=== PATIENT | female | born 1985 | race Caucasian/White ===

== ENCOUNTER 2020-08-09 10:17 | Outpatient (RCR) | payer BC, SELFPAY ==
[2020-07-12 11:12] VITALS: BP 105/66; PULSE 81
[2020-07-19 11:30] VITALS: BP 97/73; PULSE 82
[2020-07-26 12:59] VITALS: BP 106/70; PULSE 83
[2020-08-02 10:35] VITALS: BP 109/74
[2020-08-09 10:31] VITALS: BP 101/61; PULSE 73
== END 2020-08-19 07:37 | disposition home or self-care (01) ==
LOC: ANHOBOP 10:17
PROVIDERS: PCP Internal Medicine; Visit Provider Obstetrics & Gynecology
DX: O09.513 Supervision of elderly primigravida, third trimester (principal); Z3A.34 34 weeks gestation of pregnancy; Z3A.35 35 weeks gestation of pregnancy; Z3A.36 36 weeks gestation of pregnancy; Z3A.37 37 weeks gestation of pregnancy; Z3A.38 38 weeks gestation of pregnancy
CPT/HCPCS: 59025

== ENCOUNTER 2020-08-16 00:01 | Inpatient (IN) | payer OTHER, BC, SELFPAY ==
[2020-08-16] VITALS (165 sets, daily range): BP systolic 67–122; BP diastolic 36–89; PULSE 54–121; RESP 16–18; TEMP 36.2–37.3; O2SAT 93–100; BMI 28.5
--- NOTE | 2020-08-16 00:01 | LDADM ---
This patient, Rhona Luna, was admitted to Labor/Delivery/Recovery 105 on 08/16/20 at 00:01. Plans for labor, pain management and were discussed with patient. Patient/family oriented to hospital policies and general routines including ID bracelet, bed and alarms, visiting hours, pain management, procedures, bathroom and other care routines, personal items, smoking policy, room service/diet and guest tray routines, security routines, and visiting hours. Patient/Family are encouraged to report perceived risks to care and to ask questions if they do not understand what they are told or what they should do. See OBIX for further documentation.
[2020-08-16 00:32] LABS: Basophils Percent Auto 0.3 % (0.2-1.2); Eosinophils Percent Auto 0.5 % (0-4.4); Hematocrit 30.9 % (37.0-47.0); Hemoglobin 10.4 g/dL (12.0-15.0); Immature Granulocyte Absolute 0.03 K/mm3 (0.00-0.031); Immature Granulocyte Percent A 0.4 % (0-0.5); Lymphocytes Percent Auto 26.8 % (18.3-44.2); Mean Corpuscular HGB Conc 33.7 g/dl (32-36); Mean Corpuscular Hemoglobin 30.2 pg (26-34); Mean Corpuscular Volume 89.8 fl (80-100); Mean Platelet Volume 9.3 fl (7.4-10.4); Monocytes Absolute Auto 0.7 K/mm3 (0.1-0.6); Platelet Count Result 281 k/mm3 (150-375); Red Blood Count 3.44 M/mm3 (4.2-5.4); Red Cell Distribution Width 12.2 % (11.5-14.5); White Blood Count 7.9 K/mm3 (4.5-10.0)
[2020-08-16] MEDS: OXYTOCIN 30 UNITS/NS 500 ML 30 UNITS/500 ML BAG IV CONT (00:48)
[2020-08-16] MEDS: LACTATED RINGERS 1,000 ML 125 ML IV CONT (00:48)
[2020-08-16 04:09] LABS: Hepatitis B Surface Antigen Negative (Negative)
[2020-08-16 09:02] LABS: Rapid Plasma Reagin Non-Reactive (NonReactive)
[2020-08-16] MEDS: LACTATED RINGERS 1,000 ML 999 ML IV CONT ×2 (11:30→12:38)
--- NOTE | 2020-08-16 12:25 | WPDANESEPPF ---
Anes - Initial Pre Proc Eval Procedure: labor epidural Date/Time: 08/16/20 12:25 Surgeon: Emiliano Hunt MD Pre Op Diagnosis: labor pain Pre Op Diagnosis: IOL Patient Data Age: 34 Gender: F Height: 1.7 m Weight: 82.7 kg Last Vital Signs Temp 36.6 C 08/16/20 09:30 Pulse 74 08/16/20 12:24 Resp 18 08/16/20 05:42 BP 110/65 08/16/20 12:24 Pulse Ox 100 08/16/20 12:20 Allergies Allergy/AdvReac Type Severity Reaction Status Date / Time No Known Allergies Allergy Unknown Verified 07/26/20 12:34 Home Medications Medication Instructions Recorded Confirmed Type PNV cmb#95-ferrous fumarate-FA 1 tablet PO DAILY 07/26/20 07/26/20 History [] Laboratory Tests 08/16/20 08/16/20 08/16/20 00:24 00:24 00:24 WBC 7.9 K/mm3 K/mm3 (4.5-10.0) RBC 3.44 M/mm3 L M/mm3 (4.2-5.4) Hgb 10.4 g/dL L g/dL (12.0-15.0) Hct 30.9 % L % (37.0-47.0) MCV 89.8 fl fl (80-100) MCH 30.2 pg pg (26-34) MCHC 33.7 g/dl g/dl (32-36) RDW 12.2 % % (11.5-14.5) Plt Count 281 k/mm3 k/mm3 (150-375) MPV 9.3 fl fl (7.4-10.4) Immature Gran % (Auto) 0.4 % % (0-0.5) Neut % (Auto) 63.0 % % (45.5-73.1) Lymph % (Auto) 26.8 % % (18.3-44.2) Hill % (Auto) 9.0 % H % (2.6-8.5) Eos % (Auto) 0.5 % % (0-4.4) Baso % (Auto) 0.3 % % (0.2-1.2) Lymph # (Auto) 2.10 K/mm3 K/mm3 (0.9-3.2) Hill # (Auto) 0.7 K/mm3 H K/mm3 (0.1-0.6) Eos # (Auto) 0.0 K/mm3 K/mm3 (0-0.3) Baso # (Auto) 0.0 K/mm3 K/mm3 (0.0-0.1) Abs Immat Gran (auto) 0.03 K/mm3 K/mm3 (0.00-0.031) Absolute Neuts (auto) 5.0 K/mm3 K/mm3 (1.3-6.7) Absolute Nucleated RBC 0.0 K/mm3 K/mm3 (0.0-0.012) Nucleated RBC % 0.0 % % (0.0-0.2) RPR Non-reactive (NonReactive) Hep Bs Antigen Rubella IgG Antibody 75.0 IU/ML IU/ML (10 - ) Blood Type Antibody Screen 08/16/20 08/16/20 00:24 00:24 WBC RBC Hgb Hct MCV MCH MCHC RDW Plt Count MPV Immature Gran % (Auto) Neut % (Auto) Lymph % (Auto) Hill % (Auto) Eos % (Auto) Baso % (Auto) Lymph # (Auto) Hill # (Auto) Eos # (Auto) Baso # (Auto) Abs Immat Gran (auto) Absolute Neuts (auto) Absolute Nucleated RBC Nucleated RBC % RPR Hep Bs Antigen Negative (Negative) Rubella IgG Antibody Blood Type A Positive Antibody Screen Negative Patient hx anesthesia problems: none Family hx anesthesia problems: none PMFSH Social History Social History Smoking status: Never smoker Substance use: never Spiritual care concerns: No Anes - Eval Final PreProcedure Day of Procedure 08/16/20 12:25 Patient weight: overweight ASA classification: II Anesthesia type and monitoring: regional epidural Informed Consent: The patient's anesthetic plan and its attendant risks and benefits were discussed with the patient/family/POA. Questions were solicited and answers provided to the satisfaction of the patient/family/POA.
[2020-08-16] MEDS: PHENYLEPHRINE 1,000 MCG/10 ML SYRINGE 100 MCG IV PUSH (12:53)
[2020-08-16] MEDS: SODIUM CHLORIDE 0.9% IV 300 ML 600 ML I-UTERINE (13:51)
[2020-08-16] MEDS: ONDANSETRON INJ 4 MG/2 ML VIAL IV PUSH (14:34)
--- NOTE | 2020-08-16 17:05 | PM.OBPRVD ---
OB - Delivery Note Procedure Route of delivery: Laceration description: Perineal - 2nd Degree Delivery repair: chromic Specimen: No Estimated blood loss (mL): 400 Anesthesia type: Epidural Narrative: Patient prepped and draped in usual manner for this procedure. Second-degree episiotomy was then made with delivery of vertex. Rest of baby was delivered cord was clamped and cut and placenta delivered spontaneously. Cervix vagina vulva were inspected no other lacerations or tears. P exam was approximated using 2 0 chromic to approximate the vaginal tissue deep tissue in a subcuticular layer. This point seizure was considered terminated immediate postoperative condition of mother and baby were both excellent Baby Weeks of gestation at delivery: 39 Infant gender: Male Weight (pounds): 7 Weight (ounces): 9 score one minute: 8 score five minutes: 9
--- NOTE | 2020-08-16 17:07 | WPDHPUPDATE1 ---
History and Physical Update Update Date/Time: 08/16/20 17:07 History and Physical has been reviewed, including an updated exam of the patient. There are NO changes in the patient's condition. Risks, benefits, and alternatives have been discussed and questions answered. Patient agrees to proceed with procedure.
--- NOTE | 2020-08-16 17:07 | WPDOBADMIT ---
Obstetrics - Admit Note Admission Note: record reviewed. No pertinent additions to the history and/or any subsequent changes in the physical findings that are not consistent with the expected course of the were found. Additions to the history and/or subsequent changes in the physical findings follow. None.
[2020-08-16] MEDS: OXYTOCIN 30 UNITS/NS 500 ML 30 UNITS/500 ML BAG 125 UNITS IV CONT (17:09)
--- NOTE | 2020-08-16 19:49 | PC.NURSE ---
This patient, Rhona Luna, was received from Labor and Delivery on 08/16/20 at 1940. Personal belongings list checked and signed. Patient/family oriented to unit policies and routines
[2020-08-16] MEDS: WITCH HAZEL 40 PADS 1 PAD TOPICAL (19:55)
[2020-08-16] MEDS: BENZOCAINE 20% AER SPR (*SP) 56 GM CAN 1 SPRAY TOPICAL (19:55)
[2020-08-17] MEDS: IBUPROFEN 600 MG TABLET PO ×3 (01:55→15:41)
[2020-08-17 05:18] LABS: Hematocrit 31.4 % (37.0-47.0); Hemoglobin 10.5 g/dL (12.0-15.0)
--- NOTE | 2020-08-17 07:00 | PC.NURSE ---
PT introductions made and plan of care discussed per post , pain management, bottle feeding, daily care activities and pending discharge to home. PT verbalized understanding of such care.
--- NOTE | 2020-08-17 08:47 | PM.OBDSVD ---
DS: Admitting Diagnosis Admitting Diagnosis Admitting Diagnosis: IOL OB - DS: Summary OB Procedures : None OB Procedures Intrapartum: Spontaneous Vag Delivery OB Procedures: : None Time Spent with Patient Time attestation: Total time spent providing and/or coordinating discharge services: DS: Data Data Completed and Pending Labs on day of discharge: Labs from last 24 hours 08/17/20 08/16/20 04:26 00:24 Hgb 10.5 L Hct 31.4 L RPR Non-reactive Discharge Plan Discharge Consulting providers: Juanito Nesbitt Discharging Clinician: Emiliano Hunt Anticipated Discharge Date/Time: 08/17/20 08:47 Patient Disposition: Home, Self-Care Activity: as tolerated Diet: as tolerated Discharge Instructions: Education: Mom and Baby Guide Given to: Mother Follow-Up: Call your delivering provider's office for an appointment to be seen in: 3 weeks Mom and baby should come to the [facility] for the follow-up appointment. Appointment Date/Time: August 19, 2020 at 8:00 am What to expect at your follow-up visit: Blood Pressure Check Call [phone] if you are unable to keep your appointment time. BREAST CARE: * Wear a snug supportive bra. * For engorgement discomfort: Bottle Feeding: * May apply ice packs PERINEAL CARE: * Until bleeding stops, use your bernadette bottle after urinating * Change your pad frequently throughout the day * You may take sitz baths several times a day (fill your bathtub with warm water and soak for 20 minutes.) Do NOT bathe in the water * No tub baths until seen by your physician - You may shower ACTIVITY: * Rest as much as possible. * Do not exercise or lift anything heavier than your baby (such as laundry or other children.) * Avoid stairs or driving as much as possible. * Do not put anything into the vagina. No douching, tampons, or sexual activity until seen by physician. NOTIFY PHYSICIAN IF YOU HAVE ANY QUESTIONS OR IF ANY OF THE FOLLOWING SYMPTOMS OCCUR: * If your perineum becomes red, swollen, or more painful than what you have experienced in the hospital. * If your vaginal bleeding becomes foul smelling. * If your vaginal bleeding becomes more heavy than a period or if your bleeding changes from pink to bright red. However, you may pass an occasional walnut-sized clot once or twice for the first week . * If you experience a sharp, shooting pain in you calves. * If you discover a hard, reddened area on your breast or if you experience flu-like symptoms. * IF you have a fever of 100.4 or greater DIET: * Eat regular, well-balanced meals. * Drink plenty of fluids daily. If , drink to thirst. Patient Instructions: Antibiotic Form Stand Alone Forms: General Discharge Information Follow-up/Referrals: Emiliano Hunt MD [Physician] - 3 Weeks Discharge Medications: New ibuprofen 600 mg Tablet 600 mg PO Q6H PRN (Reason: Cramping) Qty: 30 RF: 0 Continued PNV cmb#95-ferrous fumarate-FA [] 28 mg iron- 800 mcg Tablet 1 tablet PO DAILY RF: 0 Date of admission: 08/16/20 00:01 Primary Care Provider: Chao Zhang Admitting Provider: Emiliano Hunt Discharge Date/Time: 08/17/20 18:12 Attending physician on admission: Emiliano Hunt Condition: Stable
[2020-08-17] MEDS: MULTIVIT/MIN/PREN/FOL AC/IRON TABLET 1 TAB PO (10:14)
[2020-08-17] MEDS: DOCUSATE SODIUM 100 MG CAPSULE PO ×2 (10:14→15:42)
[2020-08-17 10:15] VITALS: BP 119/68; PULSE 78; RESP 18; TEMP 37.1; O2SAT 99
--- NOTE | 2020-08-17 12:42 | WPDANLDPN2 ---
Anes-Prog Note L&D Date/Time: 08/17/20 12:42 Comfortable throughout: labor and delivery Neuraxial method: epidural Epidural/Spinal procedure site: clean & non-tender Neuro status: Neuro function grossly intact. Cardiovascular status: normal Respiratory status: normal Airway patency: baseline Mental status: baseline Post-Op hydration status: normal Vital Signs: Last Vital Signs Temp 37.1 C 08/17/20 10:15 Pulse 78 08/17/20 10:15 Resp 18 08/17/20 10:15 BP 119/68 08/17/20 10:15 Pulse Ox 99 08/17/20 10:15 Pain score (VAS): 12/08 I/O: Intake & Output 08/16/20 08/17/20 08/17/20 23:59 07:59 15:59 Output Total 84 Balance -84 Post-procedural complaints: none Patient feedback: Patient satisfied with anesthetic care.
--- NOTE | 2020-08-17 18:00 | PC.NURSE ---
PT received discharge instructions per protocol and verbalized understanding of such instructions.
--- NOTE | 2020-08-17 18:12 | PC.NURSE ---
PT discharged to home ambulatory accompanied by spouse and and taken to waiting car. Follow up appts confirmed
[2020-08-19 08:32] VITALS: BP 108/71; PULSE 82; RESP 20; O2SAT 98
--- NOTE | 2020-08-28 07:27 | P.DS_ITS ---
DS: Admitting Diagnosis Admitting Diagnosis Admitting Diagnosis: IOL OB - DS: Summary OB Procedures : None OB Procedures Intrapartum: Spontaneous Vag Delivery OB Procedures: : None Time Spent with Patient Time attestation: Total time spent providing and/or coordinating discharge services: Discharge Plan Discharge Consulting providers: Juanito Nesbitt Discharging Clinician: Emiliano Hunt Anticipated Discharge Date/Time: 08/17/20 08:47 Patient Disposition: Home, Self-Care Activity: as tolerated Diet: as tolerated Discharge Instructions: Education: Mom and Baby Guide Given to: Mother Follow-Up: Call your delivering provider's office for an appointment to be seen in: 3 weeks Mom and baby should come to the [facility] for the follow-up appointment. Appointment Date/Time: August 19, 2020 at 8:00 am What to expect at your follow-up visit: Blood Pressure Check Call [phone] if you are unable to keep your appointment time. BREAST CARE: * Wear a snug supportive bra. * For engorgement discomfort: Bottle Feeding: * May apply ice packs PERINEAL CARE: * Until bleeding stops, use your bernadette bottle after urinating * Change your pad frequently throughout the day * You may take sitz baths several times a day (fill your bathtub with warm water and soak for 20 minutes.) Do NOT bathe in the water * No tub baths until seen by your physician - You may shower ACTIVITY: * Rest as much as possible. * Do not exercise or lift anything heavier than your baby (such as laundry or other children.) * Avoid stairs or driving as much as possible. * Do not put anything into the vagina. No douching, tampons, or sexual activity until seen by physician. NOTIFY PHYSICIAN IF YOU HAVE ANY QUESTIONS OR IF ANY OF THE FOLLOWING SYMPTOMS OCCUR: * If your perineum becomes red, swollen, or more painful than what you have experienced in the hospital. * If your vaginal bleeding becomes foul smelling. * If your vaginal bleeding becomes more heavy than a period or if your bleeding changes from pink to bright red. However, you may pass an occasional walnut- sized clot once or twice for the first week . * If you experience a sharp, shooting pain in you calves. * If you discover a hard, reddened area on your breast or if you experience flu- like symptoms. * IF you have a fever of 100.4 or greater DIET: * Eat regular, well-balanced meals. * Drink plenty of fluids daily. If , drink to thirst. Patient Instructions: Antibiotic Form Stand Alone Forms: General Discharge Information Follow-up/Referrals: Emiliano Hunt MD [Physician] - 3 Weeks Discharge Medications: New ibuprofen 600 mg Tablet 600 mg PO Q6H PRN (Reason: Cramping) Qty: 30 RF: 0 Continued PNV cmb#95-ferrous fumarate-FA [] 28 mg iron- 800 mcg Tablet 1 tablet PO DAILY RF: 0 Date of admission: 08/16/20 00:01 Primary Care Provider: Chao Zhang Admitting Provider: Emiliano Hunt Interventions: Discharge Disposition Last Done: 08/17/20 18:12 Discharge Date/Time: 08/17/20 18:12 Attending physician on admission: Emiliano Hunt Condition: Stable
== END 2020-08-17 18:12 | disposition home or self-care (01) | DRG 560 ==
LOC: ANHLDR 00:14 → ANHOB2 19:48
PROVIDERS: Admitting Provider Obstetrics & Gynecology; PCP Internal Medicine; Visit Provider Obstetrics & Gynecology
DX: O36.8330 Maternal care for abnormalities of the fetal heart rate or rhythm, third trimester, not applicable or unspecified (principal); Z37.0 Single live birth; Z3A.39 39 weeks gestation of pregnancy
CPT/HCPCS: 36415; 85014; 85018; 85025; 86592; 86762; 86850; 86900; 86901; 87340; A9270; J2370; J2405; J2590; J2795; J7030; J7120

== ENCOUNTER 2022-07-13 07:49 | Outpatient (CLI) | payer SELFPAY ==
--- NOTE | ~2022-07-13 | MR_ITS ---
EXAMINATION: MR wrist RT wo con DATE: 07/13/2022 08:25 INDICATION: Right wrist pain TECHNIQUE: Magnetic resonance imaging (MRI) of the right wrist was performed without intravenous cont rast. Sequences performed include axial PD-weighted FSE and PD-weighted FS FSE, coronal PD-weighted F S FSE and T1-weighted SE, and sagittal PD-weighted FS FSE and PD-weighted FSE. COMPARISON: None FINDINGS: Intrinsic ligaments: The scapholunate and lunotriquetral ligaments are normal. Triangular fibrocartilage complex (TFCC): Linear increased intrasubstance signal within the central fibrocartilaginous disc of the triangular f ibrocartilage complex and extending into the dorsal radioulnar ligament consistent with partial tears . No fluid signal intensity tear defect or retraction of the foveal, ulnar styloid radial attachments of the triangular fibrocartilage complex. The ulnar triquetral ligament remains intact. The extensor carpi ulnaris tendon sheath is normal. Extensor wrist: There is focal increased signal of less than fluid intensity along a third segment of the extensor ca rpi ulnaris tendon distal to the tip of the ulnar styloid process. The tendon immediately proximal an d distal to this segment demonstrates normal low signal and no evident thickening with change in cour se of the tendon at the transition point suggesting the intervening increased signals due to magic an gle artifact rather than tendinopathy or tear. Extensor tendons of the wrist are otherwise normal. No tenosynovitis. Flexor wrist: The flexor tendons of the wrist are normal. No abnormality in the carpal tunnel with normal median n erve. Guyon's canal: Guyon's canal including the ulnar nerve and artery are normal. Bones/other: There is increased volar tilt of the distal radius which measures approximately 22 degrees which coul d be developmental or sequela of old healed fracture. There is 3 mm ulnar positive variance relative to the medial rim of the distal radius with neutral variance at the dorsal rim. Normal marrow signal. No acute fracture, erosions, avascular necrosis or pathologic marrow replacing process. Mild osteoar thritis at the wrist joint with partial thickness cartilage loss most prominent along the distal jeffry cular surface of the radius which appears to involve greater than 50% of the cartilage thickness at t he scaphoid fossa and the ridge between the scaphoid and lunate fossae. Small effusion at the distal radioulnar joint. There is significant joint space narrowing at the articulation between the trapezoi d and the base of the second metacarpal with suggestion of possible partial fusion across portion of the joint space on the images. Alternatively this appearance could be artifact of osteoarthritis with joint space narrowing and volume averaging. IMPRESSION: 1. Increased volar tilt of the distal radius and 3 mm volar sided ulnar positive variance which could be either developmental or potentially sequela of old healed distal radial fracture. Correlate with clinical history. 2. Partial tear of the central fibrocartilaginous disc and dorsal radioulnar ligament of the triangul ar fibrocartilage complex. 3. 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 4. Additional more prominently joint space narrowing consistent with at least moderate severity osteo arthritis versus potentially developmental partial fusion across the second carpometacarpal joint. Reviewed, dictated and finalized at location A.
== END 2022-07-13 07:50 ==
PROVIDERS: PCP Internal Medicine; Visit Provider Orthopaedic Surgery
DX: M19.031 Primary osteoarthritis, right wrist (principal)
CPT/HCPCS: 73221

== ENCOUNTER → 2024-09-04 09:17 | Outpatient (REF) | payer SELFPAY | LOC: ANHLAB 09:17 | PROVIDERS: PCP Internal Medicine; Visit Provider Plastic Surgery | DX: R22.2 Localized swelling, mass and lump, trunk (principal) | CPT/HCPCS: 88305 ==